=== PATIENT | male | born 1985 | race Caucasian/White ===

== ENCOUNTER → 2021-08-26 | Outpatient (CLI) | payer OTHER ==
--- NOTE | 2021-08-26 08:44 | CT ---
EXAMINATION TYPE: CT lumbar spine wo con DATE OF EXAM: 08/26/2021 7:27 AM COMPARISON: None HISTORY: low back pain, left hip pain, left leg weakness/spasm post fall off roof CT DLP: 570.1 mGycm Automated exposure control for dose reduction was used. Unenhanced CT of the lumbar spine was performed. Bone and soft tissue window settings are submitted as well as coronal and sagittal reconstructions. L1-L2: Mild loss of height superior endplate of L1 of uncertain age and/or etiology. Estimated loss o f height is approximately 20%. No bony retropulsion identified. normal disc space height. No disc he rniation protrusion or central stenosis. No facet joint arthropathy. No evidence for foraminal encr oachment. L2-L3: Normal disc space height. No disc herniation protrusion or central stenosis. No facet joint arthropathy. No evidence for foraminal encroachment. L3-L4: Normal disc space height. No disc herniation protrusion or central stenosis. No facet joint arthropathy. No evidence for foraminal encroachment. L4-L5: Severe disc space narrowing with vacuum disc noted. There is posterior disc bulge posterior ce ntrally and to the right. There is partial encapsulating spur. Resultant right lateral recess stenosi s. Right-sided neural foraminal encroachment noted. L5-S1: Normal disc space height. No disc herniation protrusion or central stenosis. No facet joint arthropathy. No evidence for foraminal encroachment. IMPRESSION: 1. Superior endplate compression fracture of L1 of uncertain age and/or etiology as noted above. 2. Degenerative disc disease with right paracentral disc bulge and right lateral recess stenosis and foraminal encroachment at L5-S1.
== END | disposition home or self-care (01) ==
LOC: RADCTMAIN 06:07
PROVIDERS: ATTEND Specialist
DX: M51.37 Other intervertebral disc degeneration, lumbosacral region (principal); M51.27 Other intervertebral disc displacement, lumbosacral region; M48.07 Spinal stenosis, lumbosacral region
CPT/HCPCS: 72131